=== PATIENT | female | born 1990 | race Caucasian/White ===

== ENCOUNTER 2018-04-01 13:47 | Emergency (ER) | payer OTHER ==
[~2018-04-01] VITALS: Ht 162.6 cm; Wt 79.4 kg
[2018-04-01] MEDS ORDERED: BACTRIM DS TAB1 EACH PO (13:58)
[2018-04-01] MEDS ORDERED: KEFLEX500 M1 PO (14:45)
[2018-04-01 14:53] VITALS: BP 120/85
== END 2018-04-01 14:53 | disposition home or self-care (01) ==
LOC: M.ERS 13:47
DX: L02.416 Cutaneous abscess of left lower limb (principal); L03.116 Cellulitis of left lower limb